=== PATIENT | female | born 1950 | race Caucasian/White ===

== ENCOUNTER → 2016-12-22 | Outpatient (CLI) | payer MEDICARE, OTHER ==
[~2016-12-22] MED LIST: ASPIRIN 81M81 MG/TA2 PO; ASPIRIN E.C. 8181 MG PO; BACTRIM DS 8001 TAB PO; CUBICIN 500MG500 MG IV; DEMADEX 20MG20 M1 PO; FLAGYL500 MG PO; KLOR-CON M2020 MEQ PO; LASIX 40MG TABL40 MG PO; LEVOXYL0.075 MG PO; LEVOXYL0.175 MG PO; MAGNESIUM100 MG PO; NATURAL C500 MG PO; NEXIUM 40MG40 MG PO; PHARMASSURE CHE30 MG PO; PHENOBARBITAL32.4 MG PO; ROCEPHIN 2GM VIAL21 IV; TOPROL XL 50MG50 MG PO; TYLENOL 325MG325 MG PO; ULTRAM 50MG TAB50 MG PO; VANCOCIN HCL500 MG IV; VITAMIN D 1001000 IU PO; VITAMIN D31000 IU PO; ZOFRAN8 MG PO
== END ==
LOC: MC.RAD 09:30
DX: Z12.31 Encounter for screening mammogram for malignant neoplasm of breast (principal)

== ENCOUNTER → 2019-09-27 | Outpatient (CLI) | payer MEDICARE, OTHER | LOC: COL.LAB 11:44 | DX: Z47.1 Aftercare following joint replacement surgery (principal); Z96.642 Presence of left artificial hip joint ==

== ENCOUNTER 2020-04-16 06:54 | Outpatient (CLI) | payer MEDICARE, OTHER ==
[~2020-04-16] VITALS: Ht 162.6 cm; Wt 53.1 kg
[2020-04-16] VITALS (25 sets, daily range): BP systolic 117–155; BP diastolic 52–85; PULSE 53–92
[~2020-04-16 06:54] MED LIST changes: +CALCIUM PO; +JUICE PLUS PO; +LEVOXYL0.05 MG PO; +MAG PO; +NORCO 325 MG-7.1 TAB PO; +ROXICODONE 55 MG/TAB PO; +SYNTHROID0.075 MG/T PO; -VITAMIN D 1001000 IU PO; +XARELTO10 MG PO; +ZINC PO
--- NOTE | 2020-04-16 07:50 | NUR ---
Dr Hobbs in and talks with pt regarding procedure. Pt then positioned in prone position on ct table. Monitors applied and O2 on at 2l/nc.
--- NOTE | 2020-04-16 08:40 | NUR ---
Dr Sagastume into assist with procedure.
--- NOTE | 2020-04-16 08:47 | NUR ---
Specimen obtained by Dr Sagastume and placed in formalin. Specimen labeled.
--- NOTE | 2020-04-16 11:50 | NUR ---
Discharge instructions given to pt.Pt verbalizes understanding.INT removed,catheter tip intact.Pt escorted out via wheelchair.
== END 2020-04-16 11:45 | disposition home or self-care (01) ==
LOC: COL.RAD 06:54
DX: R91.8 Other nonspecific abnormal finding of lung field (principal); Z98.890 Other specified postprocedural states
CPT/HCPCS: J3010

== ENCOUNTER → 2020-05-01 | Outpatient (CLI) | payer MEDICARE, OTHER ==
[2020-05-01 09:58] LABS: CALCIUM 9.5 mg/dL (8.4-10.2); CREATININE, serum 0.77 (0.52-1.25); POTASSIUM 4.3 mmol/L (3.4-5.0)
== END ==
LOC: COL.RAD 08:31 → COL.LAB 08:31 → COL.RAD 09:00
PROVIDERS: Internal Medicine Pulmonary Disease
DX: C34.91 Malignant neoplasm of unspecified part of right bronchus or lung (principal)
CPT/HCPCS: A9585

== ENCOUNTER → 2020-09-27 | Outpatient (CLI) | payer MEDICARE, OTHER | LOC: COL.RAD 09:37 | DX: C34.91 Malignant neoplasm of unspecified part of right bronchus or lung (principal) | CPT/HCPCS: Q9967 ==

== ENCOUNTER → 2020-11-12 | Outpatient (CLI) | payer MEDICARE, OTHER | LOC: COL.RAD 09:56 | DX: R91.1 Solitary pulmonary nodule (principal) | CPT/HCPCS: Q9967 ==

== ENCOUNTER → 2021-02-21 | Outpatient (CLI) | payer MEDICARE, OTHER | LOC: COL.RAD 12:05 | DX: C34.91 Malignant neoplasm of unspecified part of right bronchus or lung (principal); Z90.2 Acquired absence of lung [part of] ==

== ENCOUNTER → 2021-08-22 | Outpatient (CLI) | payer MEDICARE, OTHER | LOC: COL.RAD 11:00 | DX: R91.8 Other nonspecific abnormal finding of lung field (principal); Z98.82 Breast implant status; Z98.890 Other specified postprocedural states ==

== ENCOUNTER 2022-06-01 18:53 | Emergency (ER) | payer MEDICARE, OTHER ==
[~2022-06-01] VITALS: Ht 152.4 cm; Wt 53.6 kg
[2022-06-01 19:40] LABS: BASO % 0.3 % (0.0-2.0); EOS % 0.2 % (0.0-4.0); GRAN # 10.5 K/mm3 (1.4-6.5); HEMOGLOBIN 17.7 g/dl (12.5-16.0); LYMPH # 0.7 K/mm3 (1.2-3.4); LYMPH % 6.3 % (20.0-51.0); MEAN CELL VOLUME 92 fl (80.0-100.0); MEAN CORPUSCULAR HEMOGLOBIN 31 pg (27-31); MEAN CORPUSCULAR HGB CONC 34 g/dl (33.0-37.0); MEAN PLATELET VOLUME 10.4 fl (7.4-10.4); MONO # 0.4 K/mm3 (0.1-0.6); PLATELET COUNT 186 K/mm3 (130-400); RED BLOOD COUNT 5.65 M/mm3 (4.10-5.30); REDCELL DISTRIBUTION WIDTH-CV 13.6 % (11.5-14.5)
[2022-06-01 19:42] LABS: HEMATOCRIT 52.2 % (37.0-47.0)
[2022-06-01 20:47] LABS: ALBUMIN 4.3 gm/dL (3.4-4.8); BILIRUBIN,TOTAL 0.4 mg/dL (0.2-1.2); CALCIUM 9.9 mg/dL (8.4-10.2); CREATININE, serum 0.86 mg/dL (0.57-1.11); POTASSIUM 3.9 mmol/L (3.5-4.5); TOTAL PROTEIN 7.4 gm/dL (6.2-8.1)
[2022-06-01 20:53] LABS: TROPONIN-I 0.027 ng/mL (0.00-0.033)
[2022-06-01] MEDS ORDERED: TOPROL XL 25MG25 MG PO (22:43)
[2022-06-01] MEDS ORDERED: SYNTHROID0.05 MG/TA PO (22:43)
[2022-06-01] MEDS ORDERED: PHENOBARBITAL64.8 MG PO (22:43)
[2022-06-01] MEDS ORDERED: NATURAL E400 IU PO (22:44)
[2022-06-01] MEDS ORDERED: VITAMIN B COMPL1 SGL PO (22:45)
[2022-06-01 23:01] VITALS: BP 142/99; PULSE 100; TEMP 98.2
[2022-06-01 23:44] LABS: TSH w REFLEX 0.829 uIU/mL (0.350-4.940)
== END 2022-06-01 23:12 | disposition home or self-care (01) ==
LOC: COL.ER 18:53
PROVIDERS: Emergency Medicine
DX: I10 Essential (primary) hypertension (principal); D72.829 Elevated white blood cell count, unspecified; R73.9 Hyperglycemia, unspecified; Z87.891 Personal history of nicotine dependence
CPT/HCPCS: J2405; J7120; Q9967

== ENCOUNTER → 2022-06-02 | Outpatient (CLI) | payer MEDICARE, OTHER ==
[~2022-06-02] MED LIST changes: +NATURAL E400 IU PO; +PHENOBARBITAL64.8 MG PO; +SYNTHROID0.05 MG/TA PO; +TOPROL XL 25MG25 MG PO; +VITAMIN B COMPL1 SGL PO
== END ==
LOC: COL.RAD 09:43
DX: C34.91 Malignant neoplasm of unspecified part of right bronchus or lung (principal); R91.1 Solitary pulmonary nodule; Z90.2 Acquired absence of lung [part of]